=== PATIENT | female | born 1990 | race Caucasian/White ===

== ENCOUNTER 2016-12-01 22:02 | Emergency (ER) | payer MEDICAID ==
--- NOTE | 2016-12-01 22:57 | ER Document Report ---
ED General - General Chief Complaint: Abdominal Pain Stated Complaint: ABDOMINAL AND BACK PAIN,NAUSEA Notes: Patient is a 26-year-old female presents with complaint of pelvic pain. Patient says that she's been having the pain off and on for 2 years. She says the pain always starts to occur approximately week for menstrual.. She says the pain has become worse. So as a sharp stabbing pain. So is the suprapubic region. Her muscle periods have also become more heavy. She is approximately 1 week from her normal time of her menstrual period. She does not think she be . No abnormal vaginal discharge. No other complaints at this time. She does have a family history of endometriosis as well as uterine fibroids. TRAVEL OUTSIDE OF THE [place] IN LAST 30 DAYS: No - Related Data Allergies/Adverse Reactions: No Known Allergies Allergy (Verified 10/24/16 11:39) Past Medical History - Social History Smoking Status: Never Smoker Frequency of alcohol use: None Drug Abuse: None Family History: Reviewed & Not Pertinent Patient has suicidal ideation: No Patient has homicidal ideation: No Pulmonary Medical History: Denies: Hx Tuberculosis Endocrine Medical History: Reports: Hx Diabetes Mellitus Type 1, Hx Hypothyroidism Renal/ Medical History: Denies: Hx Peritoneal Dialysis Past Surgical History: Reports: Hx Oral Surgery - wisdom. Denies: Hx Pacemaker - Immunizations Immunizations up to date: Yes Hx Diphtheria, Pertussis, Tetanus Vaccination: Yes Hx Pneumococcal Vaccination: 03/02/12 Review of Systems - Review of Systems Notes: My Normal Review Basic REVIEW OF SYSTEMS: CONSTITUTIONAL : Denies fever, chills, or sweats. Denies recent illness. RESPIRATORY: Denies cough, cold, or chest congestion. Denies shortness of breath, difficulty breathing, or wheezing. GASTROINTESTINAL: Abdominal pain. No vomiting or diarrhea. GENITOURINARY: Denies difficulty urinating, painful urination, burning, frequency, or blood in urine. FEMALE GENITOURINARY: Denies vaginal bleeding, abnormal or irregular periods. LMP: 3 weeks ago MUSCULOSKELETAL: Denies neck or back pain or joint pain or swelling. SKIN: Denies rash or skin lesions. NEUROLOGICAL: Denies altered mental status or loss of consciousness. Denies headache. Denies weakness or paralysis or loss of use of either side. Denies problems with gait or speech. Denies sensory or motor loss. ALL OTHER SYSTEMS REVIEWED AND NEGATIVE. Physical Exam - Vital signs Vitals: Temp Pulse Resp BP Pulse Ox 98.6 F 120 H 19 138/94 H 98 12/01/16 22:05 12/01/16 22:05 12/01/16 22:05 12/01/16 22:05 12/01/16 22:05 - Notes Notes: General Appearance: Well nourished, alert, cooperative, no acute distress, mild obvious discomfort. Vitals: reviewed, See vital signs table. Head: no swelling or tenderness to the head Eyes: PERRL, EOMI, Conjuctiva clear Lungs: No wheezing, No rales, No rhonci, No accessory muscle use, good air exchange bilaterally. Heart: Normal rate, Regular rythm, No murmur, no rub Abdomen: Normal BS, soft, No rigidity, mild suprapubic abdominal tenderness to palpation, No guarding, no rebound, no abdominal masses, no organomegaly Extremities: strength 5/5 in all extremities, good pulses in all extremities, no swelling or tenderness in the extremities, no edema. Skin: warm, dry, appropriate color, no rash Neuro: speech clear, oriented x 3, normal affect, responds appropriately to questions. Course - Vital Signs Vital signs: Temp Pulse Resp BP Pulse Ox 98.6 F 120 H 19 138/94 H 98 12/01/16 22:05 12/01/16 22:05 12/01/16 22:05 12/01/16 22:05 12/01/16 22:05 - Laboratory Laboratory results interpreted by me: 12/01/16 23:00 Urine Glucose (UA) 50 H - Transfer of Care Notes: 12/02/16 00:26 I feel the patient is safe to be discharged home. Ultrasound shows some free fluid in right adnexa. She's not . There is a chance she could have another ruptured ovarian cyst. I suspect most likely her pain is related to endometriosis. She has strong family history of endometriosis and her pain was worsens near the time of her menstrual period. However her to gynecology. This time she has no fevers, no abnormal vaginal discharge, and she currently has no concerns for sexually transmitted diseases. I therefore do not think pelvic exam is needed at this time as she just had one 1 month ago and the results were normal. Patient encouraged to return to ER immediately if she has fevers, vomiting, or worsening pain. Patient was tachycardic in triage. IDs suspect this is related to her pain. Clinically she looks very well and is not unwell appearing. 12/02/16 00:28 Dictation of this chart was performed using voice recognition software; therefore, there may be some unintended grammatical errors. Discharge - Discharge Clinical Impression: Pelvic pain Condition: Good Disposition: HOME, SELF-CARE Additional Instructions: Oral Narcotic Medication You have been given a prescription for pain control. This medication is a narcotic. It's best taken with food, as nausea can result if taken on an empty stomach. Don't operate machinery or drive within six hours of taking this medication. Do not combine this medicine with alcohol, or with any medication which can cause sedation (such as cold tablets or sleeping pills) unless you get permission from the physician. Narcotics tend to cause constipation. If possible, drink plenty of fluids and eat a diet high in fiber and fruits. Your ultrasound showed small amount of free fluid. There is no other evidence of any concerning findings. I did not see fibroids. Based on the fact that your symptoms worsen near the time of your menstrual period I suspect she probably to have endometriosis. Please: [facility]-up with [facility]. I've included the phone number to the office. It is under the physician name, Dr. Robles. Please return to the ER immediately if you have fevers, worsening pain, vomiting, or feel unwell. Forms: Return to Work Referrals: AMADO SHIPLEY DO [Primary Care Provider] - Follow up as needed MELL ROBLES MD [ACTIVE STAFF] - Follow up in 3-5 days
[2016-12-01 23:20] LABS: APPEARANCE,URINE CLEAR; BILIRUBIN,URINE NEGATIVE (NEGATIVE); GLUCOSE, URINE 50 mg/dL (NEGATIVE); KETONES,URINE NEGATIVE (NEGATIVE); LEUKOCYTE ESTERASE,URINE NEGATIVE (NEGATIVE); NITRITE,URINE NEGATIVE (NEGATIVE); PROTEIN,URINE NEGATIVE (NEGATIVE); URINE SPECIFIC GRAVITY 1.003; UROBILINOGEN,URINE NEGATIVE mg/dL (<2.0)
[2016-12-02] MEDS ORDERED: HYDROCODONE/ACETAMINOPHEN 5-325 MG 6 TAB/DSPK PO PRN (00:22)
[2016-12-02 00:31] VITALS: BP 124/73
== END 2016-12-02 00:32 | disposition home or self-care (01) ==
LOC: ER 22:02
DX: R10.2 Pelvic and perineal pain (principal); E10.9 Type 1 diabetes mellitus without complications; Z87.42 Personal history of other diseases of the female genital tract
CPT/HCPCS: 76830; 81001; 81025; 93976; 99284

== ENCOUNTER → 2016-12-24 | Outpatient (CLI) | payer MEDICAID ==
[2016-12-24 09:51] LABS: APPEARANCE,URINE CLEAR; BILIRUBIN,URINE NEGATIVE (NEGATIVE); GLUCOSE, URINE 150 mg/dL (NEGATIVE); KETONES,URINE NEGATIVE (NEGATIVE); LEUKOCYTE ESTERASE,URINE NEGATIVE (NEGATIVE); NITRITE,URINE NEGATIVE (NEGATIVE); PROTEIN,URINE NEGATIVE (NEGATIVE); URINE SPECIFIC GRAVITY 1.024; UROBILINOGEN,URINE NEGATIVE mg/dL (<2.0)
[2016-12-24 09:53] LABS: ABSOLUTE EOSINOPHILS # (AUTO) 0.2 10^3/uL (0.0-0.6); ABSOLUTE LYMPHOCYTES (AUTO) 1.3 10^3/uL (0.5-4.7); ABSOLUTE MONOCYTES (AUTO) 0.4 10^3/uL (0.1-1.4); BASOPHILS % (AUTO) 0.7 % (0-2); EOSINOPHILS % (AUTO) 4.3 % (0-6); LYMPHOCYTES % (AUTO) 32.8 % (13-45); MEAN CORPUSCULAR HEMOGLOBIN 25.5 pg (27.0-33.4); MEAN CORPUSCULAR HGB CONC 32.3 g/dL (32.0-36.0); MEAN CORPUSCULAR VOLUME 79 fl (80-97); MONOCYTES % (AUTO) 10.8 % (3-13); RED BLOOD COUNT 4.31 10^6/uL (3.72-5.28); SEGMENTED NEUTROPHILS % (AUTO) 51.4 % (42-78); WHITE BLOOD COUNT 3.9 10^3/uL (4.0-10.5)
[2016-12-24 10:25] LABS: ALANINE AMINOTRANSFERASE 17 U/L (9-52); ALBUMIN 3.7 g/dL (3.5-5.0); ALKALINE PHOSPHATASE 74 U/L (38-126); ANION GAP 10 (5-19); ASPARTATE AMINO TRANSFERASE 15 U/L (14-36); BLOOD UREA NITROGEN 12 mg/dL (7-20); CALCIUM 9.4 mg/dL (8.4-10.2); CARBON DIOXIDE 26 mmol/L (22-30); CHLORIDE 102 mmol/L (98-107); Direct HDL 76 mg/dL (>40); GLUCOSE 190 mg/dL (75-110); POTASSIUM 4.6 mmol/L (3.6-5.0); SODIUM 137.6 mmol/L (137-145); TOTAL PROTEIN 7.1 g/dL (6.3-8.2); TRIGLYCERIDES 54 mg/dL (<150)
[2016-12-24 10:49] LABS: DIRECT LDL 79 mg/dL (<100)
== END ==
LOC: OD 08:28
DX: E11.9 Type 2 diabetes mellitus without complications (principal); Z79.4 Long term (current) use of insulin; Z79.899 Other long term (current) drug therapy
CPT/HCPCS: 36415; 80053; 80061; 81001; 83036; 84443; 85025

== ENCOUNTER → 2017-01-07 | Outpatient (CLI) | payer MEDICAID ==
[2017-01-07 11:35] LABS: FERRITIN 2.39 ng/mL (6.2-137.0)
[2017-01-08 15:39] LABS: HGB A 97.3 % (94.0-98.0); HGB A2 1.9 % (0.7-3.1); HGB SOLUBILITY RESULT Negative (Negative)
== END ==
LOC: OD 10:01
DX: D64.9 Anemia, unspecified (principal); K90.0 Celiac disease
CPT/HCPCS: 36415; 82607; 82728; 82746; 83020; 83516; 83540; 83550; 85045

== ENCOUNTER 2017-01-27 12:48 | Emergency (ER) | payer MEDICAID ==
[2017-01-27 12:55] VITALS: BP 140/84
--- NOTE | 2017-01-27 12:55 | ER Document Report ---
ED Medical Screen (RME) - General TRAVEL OUTSIDE OF THE [place] IN LAST 30 DAYS: No <CELESTINA MARIO - Last Filed: 01/27/17 12:53> <LINETTE HURLEY - Last Filed: 01/29/17 05:39> - General Stated Complaint: ABDOMINAL PAIN Notes: 26 yo female c/o LLQ pain x 3 days, constant sharp pain. denies n/v/d, no fever , no urinary symptoms. no vaginal symptoms. pain radiates from abdomen to left thigh. abdomen soft, + LLQ pain with guarding. (CELESTINA MARIO) - Related Data Allergies/Adverse Reactions: No Known Allergies Allergy (Verified 01/27/17 12:53) Past Medical History Pulmonary Medical History: Denies: Hx Tuberculosis Endocrine Medical History: Reports: Hx Diabetes Mellitus Type 1, Hx Hypothyroidism Renal/ Medical History: Denies: Hx Peritoneal Dialysis Past Surgical History: Reports: Hx Oral Surgery - wisdom. Denies: Hx Pacemaker - Immunizations Immunizations up to date: Yes Hx Diphtheria, Pertussis, Tetanus Vaccination: Yes <CELESTINA MARIO - Last Filed: 01/27/17 12:53> Course - Laboratory Result Diagrams: 01/27/17 13:05 01/27/17 13:05 <LINETTE HURLEY - Last Filed: 01/29/17 05:39> - Vital Signs Vital signs: Temp Pulse Resp BP Pulse Ox 99 F 92 16 140/84 H 99 01/27/17 20:40 01/27/17 20:40 01/27/17 20:40 01/27/17 12:54 01/27/17 20:40 - Laboratory Laboratory results interpreted by me: 01/27/17 01/27/17 01/27/17 13:05 13:05 13:05 Hgb 10.7 L Hct 33.5 L MCV 77 L MCH 24.5 L RDW 15.4 H Glucose 131 H Urine Protein 30 H Urine Glucose (UA) 50 H Urine Ketones TRACE H Doctor's Discharge <CELESTINA MARIO - Last Filed: 01/27/17 12:53> <LINETTE HURLEY - Last Filed: 01/29/17 05:39> - Discharge Clinical Impression: Pelvic pain Condition: Stable Disposition: HOME, SELF-CARE Additional Instructions: Pelvic Pain: There are many causes of pain in the pelvic area. The cause could be the tubes, ovaries, uterus, intestines, appendix, pelvic muscles and connective tissue, or the urinary tract. The cause of your pelvic pain is not clear. However, it seems safe to treat you outside the hospital. If the pain sounds like a temporary problem, we sometimes wait to see if it goes away. Other patients may need additional tests, such as pelvic ultrasound or cultures. Conditions may change. Call us or come back for reexamination if any problems occur, such as: (1) Pain that becomes more severe, steady, or becomes concentrated in one specific area. Also, pain that is more severe with movement or coughing. (2) Vomiting that persists or becomes more frequent. (3) Blood in the vomitus, urine, or bowel movements. Blood in the stool may have a tarry or black appearance. (4) Shaking chills or fever greater than 100 degrees. (5) The abdomen becomes more distended or swollen. (6) Bowel movements cease. (7) Heavy vaginal bleeding. TAKE THE MEDICATION PRESCRIBED. FOLLOW UP WITH [facility] IF NOT IMPROVING. RETURN TO THE EMERGENCY ROOM IF ANY NEW OR WORSENING SYMPTOMS. Prescriptions: Doxycycline Hyclate 100 mg PO BID #14 tablet Hydrocodone/Acetaminophen [Hydrocodon-Acetaminophen 5-325] 1 each PO Q4 PRN #12 tablet PRN Reason: Referrals: [facility] [Provider Group] - Follow up as needed
[2017-01-27 13:45] LABS: ABSOLUTE EOSINOPHILS # (AUTO) 0.1 10^3/uL (0.0-0.6); ABSOLUTE LYMPHOCYTES (AUTO) 2.2 10^3/uL (0.5-4.7); ABSOLUTE MONOCYTES (AUTO) 0.5 10^3/uL (0.1-1.4); BASOPHILS % (AUTO) 0.5 % (0-2); EOSINOPHILS % (AUTO) 1.7 % (0-6); HEMATOCRIT 33.5 % (36.0-47.0); HEMOGLOBIN 10.7 g/dL (12.0-15.5); HGB HCT DIFFERENCE -1.4; LYMPHOCYTES % (AUTO) 31.6 % (13-45); MEAN CORPUSCULAR HEMOGLOBIN 24.5 pg (27.0-33.4); MEAN CORPUSCULAR VOLUME 77 fl (80-97); MONOCYTES % (AUTO) 7.5 % (3-13); RED BLOOD COUNT 4.37 10^6/uL (3.72-5.28); RED CELL DISTRIBUTION WIDTH 15.4 % (11.5-14.0); SEGMENTED NEUTROPHILS % (AUTO) 58.7 % (42-78); WHITE BLOOD COUNT 6.8 10^3/uL (4.0-10.5)
[2017-01-27 13:50] LABS: APPEARANCE,URINE SLIGHTLY-CLOUDY; BILIRUBIN,URINE NEGATIVE (NEGATIVE); GLUCOSE, URINE 50 mg/dL (NEGATIVE); KETONES,URINE TRACE mg/dL (NEGATIVE); LEUKOCYTE ESTERASE,URINE NEGATIVE (NEGATIVE); NITRITE,URINE NEGATIVE (NEGATIVE); PROTEIN,URINE 30 mg/dL (NEGATIVE); URINE SPECIFIC GRAVITY 1.041; UROBILINOGEN,URINE NEGATIVE mg/dL (<2.0)
[2017-01-27 14:08] LABS: ALANINE AMINOTRANSFERASE 18 U/L (9-52); ALBUMIN 4.4 g/dL (3.5-5.0); ALKALINE PHOSPHATASE 61 U/L (38-126); ANION GAP 16 (5-19); ASPARTATE AMINO TRANSFERASE 16 U/L (14-36); BILIRUBIN,DIRECT 0.2 mg/dL (0.0-0.4); BILIRUBIN,TOTAL 1.1 mg/dL (0.2-1.3); BLOOD UREA NITROGEN 14 mg/dL (7-20); CALCIUM 9.5 mg/dL (8.4-10.2); CARBON DIOXIDE 23 mmol/L (22-30); CHLORIDE 105 mmol/L (98-107); CREATININE RESULT 0.53 mg/dL (0.52-1.25); GLUCOSE 131 mg/dL (75-110); POTASSIUM 4.3 mmol/L (3.6-5.0); SODIUM 143.6 mmol/L (137-145); TOTAL PROTEIN 7.8 g/dL (6.3-8.2)
--- NOTE | 2017-01-27 17:59 | ER Document Report ---
ED GI/ - General Mode of Arrival: Ambulatory Information source: Patient TRAVEL OUTSIDE OF THE [place] IN LAST 30 DAYS: No - HPI Patient complains to provider of: Pelvic pain - Left Onset: Other - 3 days ago Timing/Duration: Sudden, Persistent Location: Pelvis Sexual history: control pills Associated symptoms: Nausea Exacerbated by: Other - Lifting left leg. <MARIE UMANZOR - Last Filed: 01/27/17 18:08> <SINDY AVILA - Last Filed: 01/27/17 20:09> - General Chief Complaint: Abdominal Pain Stated Complaint: ABDOMINAL PAIN Notes: Patient is a 26-year-old female presenting to the emergency department concerned of left lower abdominal pain that radiates into her left leg onset 3 days ago. Patient states that lifting her leg worsens the pain, but denies any worsening with walking. Patient admits to some nausea, but denies any vomiting. Patient states that she has history of ovarian cysts, and patient also recently started a new control on 01/10/2017. (MARIE UMANZOR) - Related Data Allergies/Adverse Reactions: No Known Allergies Allergy (Verified 01/27/17 12:53) Past Medical History - General Information source: Patient - Social History Smoking Status: Unknown if Ever Smoked Chew tobacco use (# tins/day): No Frequency of alcohol use: None Drug Abuse: None Family History: Reviewed & Not Pertinent Patient has suicidal ideation: No Patient has homicidal ideation: No Pulmonary Medical History: Denies: Hx Tuberculosis Endocrine Medical History: Reports: Hx Diabetes Mellitus Type 1, Hx Hypothyroidism Renal/ Medical History: Reports: Hx Ovarian Cysts. Denies: Hx Peritoneal Dialysis Past Surgical History: Reports: Hx Oral Surgery - wisdom. Denies: Hx Pacemaker - Immunizations Immunizations up to date: Yes Hx Diphtheria, Pertussis, Tetanus Vaccination: Yes Hx Pneumococcal Vaccination: 03/02/12 <MARIE UMANZOR - Last Filed: 01/27/17 18:08> Review of Systems - Review of Systems Constitutional: No symptoms reported EENT: No symptoms reported Cardiovascular: No symptoms reported Respiratory: No symptoms reported Gastrointestinal: See HPI, Abdominal pain - Suprapubic radiates into left thigh , Nausea. denies: Vomiting Genitourinary: No symptoms reported Female Genitourinary: No symptoms reported Musculoskeletal: No symptoms reported Skin: No symptoms reported Hematologic/Lymphatic: No symptoms reported Neurological/Psychological: No symptoms reported -: Yes All other systems reviewed and negative <MARIE UMANZOR - Last Filed: 01/27/17 18:08> Physical Exam - General General appearance: Appears well, Alert - HEENT Head: Normocephalic, Atraumatic Eyes: Normal Pupils: PERRL - Respiratory Respiratory status: No respiratory distress Chest status: Nontender Breath sounds: Normal Chest palpation: Normal - Cardiovascular Rhythm: Regular Heart sounds: Normal auscultation Murmur: No - Abdominal Distension: No distension Bowel sounds: Normal Tenderness: Tender - Left pelvic tenderness to deep palpation. No guarding or rebound. - Back Back: Normal, Nontender - Extremities General upper extremity: Normal inspection, Nontender General lower extremity: Normal inspection, Nontender - Neurological Neuro grossly intact: Yes Cognition: Normal [place] Coma Scale Eye Opening: Spontaneous [place] Coma Scale Verbal: Oriented [place] Coma Scale Motor: Obeys Commands [place] Coma Scale Total: 15 - Psychological Associated symptoms: Normal affect, Normal mood - Skin Skin Temperature: Warm Skin Moisture: Dry Skin Color: Normal <MARIE UMANZOR - Last Filed: 01/27/17 18:08> Course - Laboratory Result Diagrams: 01/27/17 13:05 01/27/17 13:05 <MARIE UMANZOR - Last Filed: 01/27/17 18:08> - Laboratory Result Diagrams: 01/27/17 13:05 01/27/17 13:05 - Diagnostic Test Radiology reviewed: Reports reviewed - Transvaginal ultrasound is unremarkable <SINDY AVILA - Last Filed: 01/27/17 20:09> - Vital Signs Vital signs: Temp Pulse Resp BP Pulse Ox 97.8 F 115 H 16 140/84 H 99 01/27/17 12:54 01/27/17 12:54 01/27/17 12:54 01/27/17 12:54 01/27/17 12:54 - Laboratory Laboratory results interpreted by me: 01/27/17 01/27/17 01/27/17 13:05 13:05 13:05 Hgb 10.7 L Hct 33.5 L MCV 77 L MCH 24.5 L RDW 15.4 H Glucose 131 H Urine Protein 30 H Urine Glucose (UA) 50 H Urine Ketones TRACE H Discharge <MARIE UMANZOR - Last Filed: 01/27/17 18:08> <SINDY AVILA - Last Filed: 01/27/17 20:09> - Discharge Clinical Impression: Pelvic pain Condition: Stable Disposition: HOME, SELF-CARE Additional Instructions: Pelvic Pain: There are many causes of pain in the pelvic area. The cause could be the tubes, ovaries, uterus, intestines, appendix, pelvic muscles and connective tissue, or the urinary tract. The cause of your pelvic pain is not clear. However, it seems safe to treat you outside the hospital. If the pain sounds like a temporary problem, we sometimes wait to see if it goes away. Other patients may need additional tests, such as pelvic ultrasound or cultures. Conditions may change. Call us or come back for reexamination if any problems occur, such as: (1) Pain that becomes more severe, steady, or becomes concentrated in one specific area. Also, pain that is more severe with movement or coughing. (2) Vomiting that persists or becomes more frequent. (3) Blood in the vomitus, urine, or bowel movements. Blood in the stool may have a tarry or black appearance. (4) Shaking chills or fever greater than 100 degrees. (5) The abdomen becomes more distended or swollen. (6) Bowel movements cease. (7) Heavy vaginal bleeding. TAKE THE MEDICATION PRESCRIBED. FOLLOW UP WITH [facility] IF NOT IMPROVING. RETURN TO THE EMERGENCY ROOM IF ANY NEW OR WORSENING SYMPTOMS. Prescriptions: Doxycycline Hyclate 100 mg PO BID #14 tablet Hydrocodone/Acetaminophen [Hydrocodon-Acetaminophen 5-325] 1 each PO Q4 PRN #12 tablet PRN Reason: Referrals: [facility] [Provider Group] - Follow up as needed Scribe Attestation: 01/27/17 20:09 I personally performed the services described in the documentation, reviewed and edited the documentation which was dictated to the scribe in my presence, and it accurately records my words and actions. (SINDY AVILA) Scribe Documentation - Scribe Written by Ely:: Marie Umanzor 01/27/2017 [id number] acting as scribe for :: Thanh <MARIE UMANZOR - Last Filed: 01/27/17 18:08>
[2017-01-27] MEDS ORDERED: DOXYCYCLINE HYCLATE 100 MG TABLET PO ONE (20:04)
[2017-01-27] MEDS ORDERED: HYDROCODONE/ACETAMINOPHEN 5-325 MG 6 TAB/DSPK PO PRN (20:04)
[2017-01-27 22:13] LABS: CHLAM PCR NOT DETECTED (NOT DETECT)
== END 2017-01-27 20:30 | disposition home or self-care (01) ==
LOC: ER 12:48
DX: R10.2 Pelvic and perineal pain (principal); R11.0 Nausea; E10.9 Type 1 diabetes mellitus without complications; Z87.42 Personal history of other diseases of the female genital tract; Z79.3 Long term (current) use of hormonal contraceptives
CPT/HCPCS: 99284; 36415; 84703; 85025; 80053; 81001; 87491; 87591; 76830; J3490

== ENCOUNTER 2017-05-28 21:31 | Emergency (ER) | payer MEDICAID ==
[2017-05-28] MEDS ORDERED: TETRACAINE HCL 0.5% OPH SOLN 2 ML OU ONE (23:05)
--- NOTE | 2017-05-28 23:14 | ER Document Report ---
ED General - General Chief Complaint: Drainage from Eye Stated Complaint: EYE SWELLING/DISCHARGE Time Seen by Provider: 05/28/17 22:59 Notes: 5 days of bilateral eye burning discharge and crusting constant worsening first left than right. Viral symptoms as well. No fever. Blurry vision only with discharge and then it clears when she wipes. TRAVEL OUTSIDE OF THE [place] IN LAST 30 DAYS: No - Related Data Allergies/Adverse Reactions: No Known Allergies Allergy (Verified 01/27/17 12:53) Past Medical History - General Information source: Patient - Social History Smoking Status: Unknown if Ever Smoked Family History: Reviewed & Not Pertinent Patient has suicidal ideation: No Patient has homicidal ideation: No Pulmonary Medical History: Denies: Hx Tuberculosis Endocrine Medical History: Reports: Hx Diabetes Mellitus Type 1, Hx Hypothyroidism Renal/ Medical History: Reports: Hx Ovarian Cysts. Denies: Hx Peritoneal Dialysis Past Surgical History: Reports: Hx Oral Surgery - wisdom. Denies: Hx Pacemaker - Immunizations Immunizations up to date: Yes Hx Diphtheria, Pertussis, Tetanus Vaccination: Yes Hx Pneumococcal Vaccination: 03/02/12 Review of Systems - Review of Systems Notes: REVIEW OF SYSTEMS GEN: Denies fever, chills, weight loss ENT: Denies sore throat, nasal discharge, ear pain EYES: Denies blurry vision, CV: Denies chest pain, palpitations, edema RESP: Denies cough, shortness of breath, wheezing GI: Denies abdominal pain, nausea, vomiting, diarrhea MSK: Denies joint pain/swelling, edema, SKIN: Denies rash, skin lesions LYMPH: Denies swollen glands/lymph nodes NEURO: Denies headache, focal weakness or numbness, dizziness PSYCH: Denies depression, suicidal or homicidal ideation PHYSICAL EXAMINATION General: No acute distress, well-nourished Head: Atraumatic, normocephalic ENT: Mouth normal, oropharynx moist, no exudates or tonsillar enlargement Eyes: Conjunctiva bilaterally injected, painless extraocular movements which are full, pupils normal. Neck: No JVD, supple, no guarding CVS: Normal rate, regular rhythm, no murmurs Resp: No resp distress, equal and normal breath sounds bilaterally GI: Nondistended, soft, no tenderness to palpation, no rebound or guarding Ext: No deformities, no edema, normal range of motion in upper and lower ext Back: No CVA or midline TTP Skin: No rash, warm Lymphatic: No lymphadeopathy noted Neuro: Awake, alert. Face symmetric. GCS 15. Physical Exam - Vital signs Vitals: Temp Pulse Resp BP Pulse Ox 97.8 F 108 H 18 138/83 H 99 05/28/17 21:35 05/28/17 21:35 05/28/17 21:35 05/28/17 21:35 05/28/17 21:35 Course - Re-evaluation Re-evalutation: 05/28/17 23:14 Conjunctivitis with minimal discharge likely viral. Erythromycin to prophylax. Conservative measures. I have discussed with the patient there likely diagnosis, aftercare plan, follow -up plans and my usual and customary return precautions. They verbalized understanding of this. - Vital Signs Vital signs: Temp Pulse Resp BP Pulse Ox 97.8 F 108 H 18 138/83 H 99 05/28/17 21:35 05/28/17 21:35 05/28/17 21:35 05/28/17 21:35 05/28/17 21:35 Discharge - Discharge Clinical Impression: Viral conjunctivitis of both eyes Condition: Good Disposition: HOME, SELF-CARE Instructions: Conjunctivitis ([facility]) Prescriptions: Erythromycin Base [Erythromycin] 1 gm OP TID #1 oint...g.
[2017-05-28 23:29] VITALS: BP 111/89
== END 2017-05-28 23:23 | disposition home or self-care (01) ==
LOC: ER 21:31
DX: B30.9 Viral conjunctivitis, unspecified (principal)
CPT/HCPCS: 99282

== ENCOUNTER 2017-06-01 16:51 | Emergency (ER) | payer MEDICAID ==
[2017-06-01 17:00] VITALS: BP 129/84
[2017-06-01] MEDS ORDERED: IBUPROFEN 800 MG TABLET PO ONE (17:13)
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
== END 2017-06-01 19:16 | disposition home or self-care (01) ==
LOC: ER 16:51
DX: S63.501A Unspecified sprain of right wrist, initial encounter (principal); S63.91XA Sprain of unspecified part of right wrist and hand, initial encounter; W51.XXXA Accidental striking against or bumped into by another person, initial encounter; Y93.83 Activity, rough housing and horseplay; E10.9 Type 1 diabetes mellitus without complications
CPT/HCPCS: 99283; 73130; L3908 ×2

== ENCOUNTER 2017-06-14 13:04 | Emergency (ER) | payer MEDICAID ==
--- NOTE | 2017-06-14 14:24 | ER Document Report ---
ED Flu Like - General Chief Complaint: Flu Symptoms Stated Complaint: FLU LIKE SYMPTOMS Time Seen by Provider: 06/14/17 13:54 Mode of Arrival: Ambulatory Information source: Patient Notes: 27-year-old female presents to ED for complaint of sore throat ear pain headache for 3 weeks. She denies any fever states that she has had some nausea earlier today. States that the sore throat and cold has gotten worse throughout the last 3 weeks and now the sore throat is so bad that it makes her ears patient. She still denies fevers. TRAVEL OUTSIDE OF THE [place] IN LAST 30 DAYS: No - HPI Onset: Other - Week Timing/Duration: Worse Quality of pain: Sharp Severity: Moderate Pain Level: 3 Associated symptoms: Earache, Nausea, Rhinnorhea, Sinus pain/drainage, Sore throat Similar symptoms previously: Yes Recently seen / treated by doctor: No - Related Data Allergies/Adverse Reactions: No Known Allergies Allergy (Verified 06/14/17 13:28) Past Medical History - General Information source: Patient - Social History Smoking Status: Never Smoker Cigarette use (# per day): No Chew tobacco use (# tins/day): No Smoking Education Provided: No Frequency of alcohol use: None Drug Abuse: None Occupation: none Lives with: Family Family History: Arthritis, CVA, DM, Thyroid Disfunction. denies: CAD, COPD, Hyperlipidemia, Hypertension, Malignancy Patient has suicidal ideation: No Patient has homicidal ideation: No - Past Medical History Cardiac Medical History: Reports: None Pulmonary Medical History: Reports: None EENT Medical History: Reports: None Neurological Medical History: Reports: None Endocrine Medical History: Reports: Hx Diabetes Mellitus Type 1, Hx Hypothyroidism Renal/ Medical History: Reports: Hx Ovarian Cysts, Other - enometriosis Malignancy Medical History: Reports: None GI Medical History: Reports: None Musculoskeltal Medical History: Reports None Skin Medical History: Reports None Psychiatric Medical History: Reports: None Traumatic Medical History: Reports: None Infectious Medical History: Reports: None Past Surgical History: Reports: Hx Oral Surgery - wisdom - Immunizations Immunizations up to date: Yes Hx Diphtheria, Pertussis, Tetanus Vaccination: Yes - 2008 Hx Pneumococcal Vaccination: 03/02/12 Review of Systems - Review of Systems Constitutional: Recent illness EENT: Ear pain, Nose discharge, Sinus discharge, Throat pain Cardiovascular: No symptoms reported Respiratory: Cough Gastrointestinal: No symptoms reported Genitourinary: No symptoms reported Female Genitourinary: No symptoms reported Musculoskeletal: No symptoms reported Skin: No symptoms reported Hematologic/Lymphatic: No symptoms reported Neurological/Psychological: No symptoms reported -: Yes All other systems reviewed and negative Physical Exam - Vital signs Vitals: Temp Pulse Resp BP Pulse Ox 99.3 F 98 15 140/89 H 98 06/14/17 13:26 06/14/17 13:26 06/14/17 13:26 06/14/17 13:26 06/14/17 13:26 Interpretation: Normal - General General appearance: Appears well, Alert - HEENT Head: Normocephalic, Atraumatic Eyes: Normal Pupils: PERRL Ears: Normal External canal: Normal Tympanic membrane: Normal Sinus: Normal Nasal: Purulent discharge, Swelling Mouth/Lips: Normal Mucous membranes: Normal Pharynx: Post nasal drainage Neck: Normal - Respiratory Respiratory status: No respiratory distress Chest status: Nontender Breath sounds: Normal Chest palpation: Normal - Cardiovascular Rhythm: Regular Heart sounds: Normal auscultation Murmur: No - Abdominal Inspection: Normal Distension: No distension Bowel sounds: Normal Tenderness: Nontender Organomegaly: No organomegaly - Back Back: Normal, Nontender - Extremities General upper extremity: Normal inspection, Nontender, Normal color, Normal ROM , Normal temperature General lower extremity: Normal inspection, Nontender, Normal color, Normal ROM , Normal temperature, Normal weight bearing. No: Kole's sign - Neurological Neuro grossly intact: Yes Cognition: Normal Orientation: AAOx4 [place] Coma Scale Eye Opening: Spontaneous [place] Coma Scale Verbal: Oriented [place] Coma Scale Motor: Obeys Commands [place] Coma Scale Total: 15 Speech: Normal Motor strength normal: LUE, RUE, LLE, RLE Sensory: Normal - Psychological Associated symptoms: Normal affect, Normal mood - Skin Skin Temperature: Warm Skin Moisture: Dry Skin Color: Normal Course - Re-evaluation Re-evalutation: 06/14/17 22:06 Assessment consistent with upper respiratory infection. Strep test was negative. Patient discharged home with instructions for care of upper respiratory infection. - Vital Signs Vital signs: Temp Pulse Resp BP Pulse Ox 99.3 F 95 17 121/81 98 06/14/17 13:26 06/14/17 15:03 06/14/17 15:03 06/14/17 15:03 06/14/17 15:03 Discharge - Discharge Clinical Impression: URI (upper respiratory infection) Qualifiers: URI type: unspecified URI Qualified Code(s): J06.9 - Acute upper respiratory infection, unspecified Condition: Stable Disposition: HOME, SELF-CARE Additional Instructions: UPPER RESPIRATORY ILLNESS: You have a viral infection of the respiratory passages -- a "cold." This common infection causes nasal congestion, drainage, and often sore throat and cough. It is highly contagious. The disease usually lasts about 10 to 14 days. There is no "cure" for the viral infection -- it must run its course. If there is a complication, such as bacterial infection in the nose, sinuses, middle ear, or bronchial tubes, antibiotics may be required. The antibiotics won't affect the virus. Drink plenty of fluids. A humidifier may help. An expectorant medication or decongestant may make you more comfortable. Use acetaminophen or ibuprofen for fever or aches. See the doctor if fever persists over two days, if there is any significant worsening of your symptoms, or if you simply fail to improve as expected. SORE THROAT: Sore throats may be caused by viruses, bacteria, or fungi. Most are due to a virus, and must get better on their own. Bacterial sore throats, particularly those due to "strep," need treatment with antibiotics. If an antibiotic is prescribed, be sure to take the medication for a full 10 days. Failure to take the antibiotic can result in complications such as rheumatic fever. Sometimes, an injection of antibiotics is given instead of pills or liquid. This single "shot" is equal in effectiveness to the oral medication. To relieve symptoms, take acetaminophen for pain. Sip clear liquids frequently, or eat popsicles or ice chips. Anesthetic sprays or lozenges may help. Make sure the air in the room is not too dry. Avoid using decongestants or antihistamines. Call the doctor if there is no improvement in two days, or if you have difficulty breathing, increasing throat pain, high fever, rash, or frequent vomiting. USE OF ACETAMINOPHEN (Tylenol): Acetaminophen may be taken for pain relief or fever control. It's much safer than aspirin, offering a wider range of "safe" dosages. It is safe during . Some brand names are Tylenol, Panadol, Datril, Anacin 3, Tempra, and Liquiprin. Acetaminophen can be repeated every four hours. The following are maximum recommended dosages: >89 pounds or adults 650 mg to 900 mg Acetaminophen can be repeated every four hours. Maximum dose not to exceed 4000 mg a day. Salt and soda solution 1 quart of water 1 tablespoon of salt 1 teaspoon of baking soda Mixed 3 ingredients together and boil for 1 minute Placed in a covered quart jar Use 1/2 ounce of cold solution to gargle 3 times a day FOLLOW-UP CARE: If you have been referred to a physician for follow-up care, call the physician s office for an appointment as you were instructed or within the next two days. If you experience worsening or a significant change in your symptoms, notify the physician immediately or return to the Emergency Department at any time for re-evaluation. Forms: Elevated Blood Pressure Referrals: BENY ROSARIO MD [Primary Care Provider] - Follow up as needed
[2017-06-14 15:05] VITALS: BP 121/81
== END 2017-06-14 15:06 | disposition home or self-care (01) ==
LOC: ER 13:04
DX: J06.9 Acute upper respiratory infection, unspecified (principal); J02.9 Acute pharyngitis, unspecified; H92.09 Otalgia, unspecified ear; R51 Headache; R11.0 Nausea; J34.89 Other specified disorders of nose and nasal sinuses
CPT/HCPCS: 87070; 87880; 99283

== ENCOUNTER → 2017-06-15 | Outpatient (CLI) | payer MEDICAID ==
--- NOTE | 2017-06-15 13:46 | RADIOLOGY REPORT (SQ) ---
EXAM DESCRIPTION: CHEST PA/LATERAL COMPLETED DATE/TIME: 06/15/2017 12:36 pm REASON FOR STUDY: COUGH COMPARISON: CT angio chest 10/04/2014 AP chest 10/04/2014 EXAM PARAMETERS: NUMBER OF VIEWS: two views TECHNIQUE: Digital Frontal and Lateral radiographic views of the chest acquired. RADIATION DOSE: NA LIMITATIONS: none FINDINGS: LUNGS AND PLEURA: No opacities, masses or pneumothorax. No pleural effusion. MEDIASTINUM AND HILAR STRUCTURES: No masses or contour abnormalities. HEART AND VASCULAR STRUCTURES: Heart normal size. No evidence for failure. BONES: No acute findings. HARDWARE: None in the chest. OTHER: No other significant finding. IMPRESSION: NO SIGNIFICANT RADIOGRAPHIC FINDING IN THE CHEST. TECHNICAL DOCUMENTATION: JOB ID: [id number] [employer]- All Rights Reserved
[2017-06-16 16:19] LABS: LYME DISEASE IGG AND IGM AB <0.91 ISR (0.00-0.90)
== END ==
LOC: OD 11:22
PROVIDERS: ATTEND Family Medicine Geriatric Medicine
DX: R05 Cough (principal)
CPT/HCPCS: 36415; 71020; 86617; 86618

== ENCOUNTER → 2017-08-11 | Outpatient (CLI) | payer MEDICAID ==
[2017-08-11 13:52] LABS: ABSOLUTE EOSINOPHILS # (AUTO) 0.1 10^3/uL (0.0-0.6); ABSOLUTE LYMPHOCYTES (AUTO) 2.1 10^3/uL (0.5-4.7); ABSOLUTE MONOCYTES (AUTO) 0.4 10^3/uL (0.1-1.4); ABSOLUTE NEUT (AUTO) 2.9 10^3/uL (1.7-8.2); BASOPHILS % (AUTO) 0.5 % (0-2); EOSINOPHILS % (AUTO) 1.6 % (0-6); HEMATOCRIT 36.7 % (36.0-47.0); HEMOGLOBIN 11.8 g/dL (12.0-15.5); HGB HCT DIFFERENCE -1.3; LYMPHOCYTES % (AUTO) 38.7 % (13-45); MEAN CORPUSCULAR HEMOGLOBIN 25.2 pg (27.0-33.4); MEAN CORPUSCULAR VOLUME 79 fl (80-97); MONOCYTES % (AUTO) 6.5 % (3-13); RED BLOOD COUNT 4.66 10^6/uL (3.72-5.28); SEGMENTED NEUTROPHILS % (AUTO) 52.7 % (42-78); WHITE BLOOD COUNT 5.5 10^3/uL (4.0-10.5)
[2017-08-11 14:22] LABS: ALANINE AMINOTRANSFERASE 21 U/L (9-52); ALBUMIN 4.5 g/dL (3.5-5.0); ALKALINE PHOSPHATASE 65 U/L (38-126); ANION GAP 15 (5-19); ASPARTATE AMINO TRANSFERASE 16 U/L (14-36); BILIRUBIN,DIRECT 0.5 mg/dL (0.0-0.4); BILIRUBIN,TOTAL 1.6 mg/dL (0.2-1.3); BLOOD UREA NITROGEN 8 mg/dL (7-20); CALCIUM 9.8 mg/dL (8.4-10.2); CARBON DIOXIDE 24 mmol/L (22-30); CHLORIDE 104 mmol/L (98-107); CHOLESTEROL 197.54 mg/dL (0-200); CREATININE RESULT 0.57 mg/dL (0.52-1.25); Direct HDL 67 mg/dL (>40); GLUCOSE 172 mg/dL (75-110); POTASSIUM 4.5 mmol/L (3.6-5.0); SODIUM 142.8 mmol/L (137-145); TOTAL PROTEIN 7.9 g/dL (6.3-8.2); TRIGLYCERIDES 132 mg/dL (<150)
[2017-08-11 14:33] LABS: DIRECT LDL 117 mg/dL (<100)
[2017-08-13 13:01] LABS: MICROALBUMIN URINE <3.0 ug/mL (Not Estab.)
[2017-08-13 15:01] LABS: LYME DISEASE IGG AND IGM AB <0.91 ISR (0.00-0.90)
== END ==
LOC: OD 13:03
PROVIDERS: ATTEND Family Medicine Geriatric Medicine
DX: E78.5 Hyperlipidemia, unspecified (principal); R20.2 Paresthesia of skin; R50.9 Fever, unspecified; Z79.899 Other long term (current) drug therapy; E10.9 Type 1 diabetes mellitus without complications
CPT/HCPCS: 36415; 80053; 80061; 82043; 82570; 82607; 83036; 84443; 85025; 86617; 86618

== ENCOUNTER → 2017-12-16 | Outpatient (CLI) | payer MEDICAID ==
[2017-12-16 15:58] LABS: ANION GAP 14 (5-19); BLOOD UREA NITROGEN 6 mg/dL (7-20); CALCIUM 9.9 mg/dL (8.4-10.2); CARBON DIOXIDE 27 mmol/L (22-30); CHLORIDE 101 mmol/L (98-107); GLUCOSE 114 mg/dL (75-110); SODIUM 141.9 mmol/L (137-145)
[2017-12-18 16:38] LABS: CREATININE URINE 109.1 mg/dL (Not Estab.); MICROALBUMIN URINE 3.6 ug/mL (Not Estab.)
== END ==
LOC: OD 14:34
PROVIDERS: ATTEND Family Medicine Geriatric Medicine
DX: E10.9 Type 1 diabetes mellitus without complications (principal); Z79.899 Other long term (current) drug therapy
CPT/HCPCS: 36415; 80048; 82043; 82570; 83036

== ENCOUNTER 2018-01-02 17:24 | Emergency (ER) | payer MEDICAID ==
[2018-01-02] MEDS ORDERED: ACETAMINOPHEN 325 MG TABLET PO ONE (17:36)
[2018-01-02] MEDS ORDERED: HYDROCODONE/ACETAMINOPHEN 5-325 MG TABLET PO ONE (17:44)
--- NOTE | 2018-01-02 17:45 | ER Document Report ---
HPI - HPI Patient complains to provider of: ankle injury Onset: This afternoon Onset/Duration: Sudden Quality of pain: Achy Pain Level: 4 Context: Patient states she was running and felt her ankle snap. Patient states she twisted her ankle. Patient complains of pain that radiates from the ankle into her foot. Exacerbated by: Standing, Movement, Walking Relieved by: Denies Similar symptoms previously: No Recently seen / treated by doctor: No - ROS ROS below otherwise negative: Yes Systems Reviewed and Negative: Yes All other systems reviewed and negative - CONSTITUTIONAL Constitutional: DENIES: Fever - NEURO Neurology: DENIES: Weakness - REPRODUCTIVE Reproductive: DENIES: : - MUSCULOSKELETAL Musculoskeletal: REPORTS: Extremity pain, Swelling - DERM Skin Color: Normal Skin Problems: None Past Medical History - General Information source: Patient - Social History Smoking Status: Never Smoker Frequency of alcohol use: None Drug Abuse: None Occupation: none Lives with: Family Family History: Arthritis, CVA, DM, Thyroid Disfunction. denies: CAD, COPD, Hyperlipidemia, Hypertension, Malignancy Pulmonary Medical History: Denies: Hx Tuberculosis Endocrine Medical History: Reports: Hx Diabetes Mellitus Type 1, Hx Hypothyroidism Renal/ Medical History: Reports: Hx Ovarian Cysts. Denies: Hx Peritoneal Dialysis Past Surgical History: Reports: Hx Oral Surgery - wisdom - Immunizations Immunizations up to date: Yes Hx Diphtheria, Pertussis, Tetanus Vaccination: Yes - 2008 Hx Pneumococcal Vaccination: 03/02/12 Vertical Provider Document - CONSTITUTIONAL Agree With Documented VS: Yes Exam Limitations: No Limitations General Appearance: WD/WN, No Apparent Distress - INFECTION CONTROL TRAVEL OUTSIDE OF THE [place] IN LAST 30 DAYS: No - HEENT HEENT: Atraumatic, Normocephalic - NECK Neck: Normal Inspection - RESPIRATORY Respiratory: No Respiratory Distress O2 Sat by Pulse Oximetry: 99 - CARDIOVASCULAR Pulses: Normal: Dorsalis pedis - MUSCULOSKELETAL/EXTREMETIES Musculoskeletal/Extremeties: MAEW, Tender - Right ankle tenderness over lateral malleolar area with 2+ edema, tenderness extends to the right midfoot area into the right fifth toe. - NEURO Level of Consciousness: Awake, Alert, Appropriate Motor/Sensory: No Motor Deficit - DERM Integumentary: Warm, Dry, No Rash Course - Vital Signs Vital signs: Temp Pulse Resp BP Pulse Ox 98.2 F 113 H 130/78 H 99 01/02/18 17:34 01/02/18 17:34 03/04/18 17:34 01/02/18 17:34 - Diagnostic Test Radiology reviewed: Image reviewed, Reports reviewed Procedures - Immobilization Right Ankle Pre-Proc Neuro Vasc Exam: Normal Immobilizer type: Ankle stirrup Performed by: PCT Post-Proc Neuro Vasc Exam: Normal Alignment checked and good: Yes Discharge - Discharge Clinical Impression: Right ankle sprain Qualifiers: Encounter type: initial encounter Involved ligament of ankle: unspecified ligament Qualified Code(s): S93.401A - Sprain of unspecified ligament of right ankle, initial encounter Condition: Stable Disposition: HOME, SELF-CARE Instructions: Ankle Stirrup Splint ([facility]), Use of Crutches ([facility]), Ice & Elevation ([facility]), Oral Narcotic Medication ([facility]), Sprained Ankle ([facility]) Additional Instructions: Return immediately for any new or worsening symptoms Followup with your primary care provider, call tomorrow to make a followup appointment Follow-up with orthopedic doctor for any continued pain or problems Weightbearing as tolerated. Prescriptions: Hydrocodone/Acetaminophen [[place] 5-325 Tablet] 1 each PO Q4 PRN #10 tablet PRN Reason: Referrals: BENY ROSARIO MD [Primary Care Provider] - Follow up as needed [facility] [Provider Group] - Follow up as needed
--- NOTE | 2018-01-02 18:45 | RADIOLOGY REPORT (SQ) ---
EXAM DESCRIPTION: ANKLE RIGHT COMPLETE COMPLETED DATE/TIME: 01/02/2018 6:35 pm REASON FOR STUDY: pain, swelling, rolled her ankle COMPARISON: None. NUMBER OF VIEWS: Three views. TECHNIQUE: AP, lateral, and oblique radiographic images acquired of the right ankle. LIMITATIONS: None. FINDINGS: MINERALIZATION: Normal. BONES: No acute fracture or dislocation. No worrisome bone lesions. JOINTS: No effusions. SOFT TISSUES: Swelling over lateral malleolus. OTHER: No other significant finding. IMPRESSION: No fracture. TECHNICAL DOCUMENTATION: JOB ID: [id number] [employer]- All Rights Reserved Reading location - IP/workstation name: [email or web address]
--- NOTE | 2018-01-02 18:46 | RADIOLOGY REPORT (SQ) ---
EXAM DESCRIPTION: FOOT RIGHT COMPLETE COMPLETED DATE/TIME: 01/02/2018 6:35 pm REASON FOR STUDY: rolled ankle, foot pain COMPARISON: None. NUMBER OF VIEWS: Three views. TECHNIQUE: AP, lateral and oblique radiographic images acquired of the right foot. LIMITATIONS: None. FINDINGS: MINERALIZATION: Normal. BONES: No acute fracture or dislocation. No worrisome bone lesions. JOINTS: No effusions. SOFT TISSUES: No soft tissue swelling. No foreign body. OTHER: No other significant finding. IMPRESSION: NEGATIVE STUDY OF THE RIGHT FOOT. NO RADIOGRAPHIC EVIDENCE OF ACUTE INJURY. TECHNICAL DOCUMENTATION: JOB ID: [id number] [employer]- All Rights Reserved Reading location - IP/workstation name: [email or web address]
[2018-01-02 19:54] VITALS: BP 121/62
== END 2018-01-02 20:23 | disposition home or self-care (01) ==
LOC: ER 17:24
PROC: 2W3QX1Z Immobilization of Right Lower Leg using Splint (ICD-10-PCS; principal; 2018-01-02)
DX: S93.401A Sprain of unspecified ligament of right ankle, initial encounter (principal); X58.XXXA Exposure to other specified factors, initial encounter; Y93.02 Activity, running; E10.9 Type 1 diabetes mellitus without complications; E03.9 Hypothyroidism, unspecified
CPT/HCPCS: 99283; 73610; 73630; L1902

== ENCOUNTER 2018-04-29 09:57 | Emergency (ER) | payer MEDICAID ==
[2018-04-29 10:07] VITALS: BP 139/72
[2018-04-29] MEDS ORDERED: ACETAMINOPHEN 325 MG TABLET PO ONE (10:22)
--- NOTE | 2018-04-29 10:24 | ER Document Report ---
ED Medical Screen (RME) - General Chief Complaint: Abscess Stated Complaint: SKIN ISSUE Time Seen by Provider: 04/29/18 10:20 Notes: RAPID MEDICAL EVALUATION DISCLOSURE I have seen this patient as part of a Rapid Medical Evaluation and, if applicable, placed any initially appropriate orders. The patient will be seen and fully evaluated, including a full history and physical exam, by a provider ( in Main ED or Fast Track) when a room becomes available. 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 She sat in a hot bath for a few minutes and it started to drain purulent material. She has not had any fevers chills nausea vomiting. Two years ago, she had something similar and was prescribed doxycycline which completely resolved the symptoms. TRAVEL OUTSIDE OF THE [place] IN LAST 30 DAYS: No - Related Data Allergies/Adverse Reactions: No Known Allergies Allergy (Verified 04/29/18 09:59) Past Medical History Pulmonary Medical History: Denies: Hx Tuberculosis Endocrine Medical History: Reports: Hx Diabetes Mellitus Type 1, Hx Hypothyroidism Renal/ Medical History: Reports: Hx Ovarian Cysts. Denies: Hx Peritoneal Dialysis Past Surgical History: Reports: Hx Oral Surgery - wisdom - Immunizations Immunizations up to date: Yes Hx Diphtheria, Pertussis, Tetanus Vaccination: Yes - 2008 Physical Exam - Vital signs Vitals: Temp Pulse Resp BP Pulse Ox 99.1 F 87 16 139/72 H 99 04/29/18 10:05 04/29/18 10:05 04/29/18 10:05 04/29/18 10:05 04/29/18 10:05 Course - Vital Signs Vital signs: Temp Pulse Resp BP Pulse Ox 99.1 F 87 16 139/72 H 99 04/29/18 10:05 04/29/18 10:05 04/29/18 10:05 04/29/18 10:05 04/29/18 10:05 Doctor's Discharge - Discharge Referrals: BENY ROSARIO MD [Primary Care Provider] - Follow up as needed
--- NOTE | 2018-04-29 10:33 | ER Document Report ---
HPI - HPI Patient complains to provider of: Right buttocks abscess Onset: Other - Several days Onset/Duration: Better - Already started to drain while she was waiting to be seen Pain Level: 2 Context: 27-year-old female complaining of right buttocks abscess that is already started to drain since she came here to be seen. No fever or chills. No history of MRSA. Associated Symptoms: None Exacerbated by: Denies Relieved by: Denies Similar symptoms previously: No Recently seen / treated by doctor: No - ROS ROS below otherwise negative: Yes Systems Reviewed and Negative: Yes All other systems reviewed and negative - REPRODUCTIVE Reproductive: DENIES: : Past Medical History - General Information source: Patient - Social History Smoking Status: Never Smoker Chew tobacco use (# tins/day): No Frequency of alcohol use: None Drug Abuse: None Lives with: Family Family History: Arthritis, CVA, DM, Thyroid Disfunction Patient has suicidal ideation: No Patient has homicidal ideation: No Endocrine Medical History: Reports: Hx Diabetes Mellitus Type 1, Hx Hypothyroidism Renal/ Medical History: Reports: Hx Ovarian Cysts Past Surgical History: Reports: Hx Oral Surgery - wisdom - Immunizations Immunizations up to date: Yes Hx Diphtheria, Pertussis, Tetanus Vaccination: Yes - 2008 Hx Pneumococcal Vaccination: 03/02/12 Vertical Provider Document - CONSTITUTIONAL Agree With Documented VS: Yes Exam Limitations: No Limitations - INFECTION CONTROL TRAVEL OUTSIDE OF THE [place] IN LAST 30 DAYS: No - HEENT HEENT: Normocephalic - NECK Neck: Supple - MUSCULOSKELETAL/EXTREMETIES Musculoskeletal/Extremeties: MAEW - NEURO Level of Consciousness: Awake - DERM Integumentary: Abscess - Right buttocks minimally red flat lesion that already drained there is no fluid collection that needs to be incised Course - Vital Signs Vital signs: Temp Pulse Resp BP Pulse Ox 99.1 F 87 16 139/72 H 99 04/29/18 10:05 04/29/18 10:05 04/29/18 10:05 04/29/18 10:05 04/29/18 10:05 Discharge - Discharge Clinical Impression: rt buttocks spon drained abscess Condition: Good Disposition: HOME, SELF-CARE Instructions: Abscess ([facility]), Bactroban Ointment ([facility]) Additional Instructions: Bactroban 3 times a day small amount to pimples and small abscesses Return to the emergency room any concerns Prescriptions: Mupirocin [Bactroban 2% Ointment 22 gm] 1 applic TP TID #22 gm Referrals: BENY ROSARIO MD [Primary Care Provider] - Follow up as needed
== END 2018-04-29 11:14 | disposition home or self-care (01) ==
LOC: ER 09:57
DX: L02.31 Cutaneous abscess of buttock (principal); E10.9 Type 1 diabetes mellitus without complications; E03.9 Hypothyroidism, unspecified
CPT/HCPCS: 99282; J3490

== ENCOUNTER → 2018-05-17 | Outpatient (CLI) | payer MEDICAID | LOC: OD 12:39 | PROVIDERS: ATTEND Family Medicine Geriatric Medicine | DX: N91.2 Amenorrhea, unspecified (principal) | CPT/HCPCS: 36415; 84703 ==

== ENCOUNTER 2018-11-16 10:12 | Emergency (ER) | payer MEDICAID, OTHER ==
[2018-11-16] MEDS ORDERED: ACETAMINOPHEN 325 MG TABLET PO ONE (10:48)
--- NOTE | 2018-11-16 10:48 | ER Document Report ---
ED Medical Screen (RME) - General Chief Complaint: Vag Bleeding, +preg <12wks Stated Complaint: BLOOD SUGAR ISSUE/CRAMPING Time Seen by Provider: 11/16/18 10:26 Notes: 28-year-old, type I diabetic, 14/15 weeks . A positive blood type c onfirmed by my chart records on cell phone from previous hospital to the emergency department complaining of spotting, left lower quadrant pain. Also patient is a diabetic and has run out of her insulin. I have greeted and performed a rapid initial assessment of this patient. A comprehensive ED assessment and evaluation of the patient, analysis of test results and completion of the medical decision making process will be conducted by additional ED providers. TRAVEL OUTSIDE OF THE [place] IN LAST 30 DAYS: No - Related Data Allergies/Adverse Reactions: No Known Allergies Allergy (Verified 11/16/18 10:13) Past Medical History Pulmonary Medical History: Denies: Hx Tuberculosis Endocrine Medical History: Reports: Hx Diabetes Mellitus Type 1, Hx Hypothyroidism Renal/ Medical History: Reports: Hx Ovarian Cysts. Denies: Hx Peritoneal Dialysis Past Surgical History: Reports: Hx Oral Surgery - wisdom - Immunizations Immunizations up to date: Yes Hx Diphtheria, Pertussis, Tetanus Vaccination: Yes - 2008 Physical Exam - Vital signs Vitals: Temp Pulse Resp BP Pulse Ox 98.7 F 134 H 16 138/79 H 100 11/16/18 10:18 11/16/18 10:18 11/16/18 10:18 11/16/18 10:18 11/16/18 10:18 Interpretation: Tachycardic - Abdominal Tenderness: Tender - LLQ pain Course - Vital Signs Vital signs: Temp Pulse Resp BP Pulse Ox 98.7 F 134 H 16 138/79 H 100 11/16/18 10:18 11/16/18 10:18 11/16/18 10:18 11/16/18 10:18 11/16/18 10:18 Doctor's Discharge - Discharge Referrals: BENY ROSARIO MD [Primary Care Provider] - Follow up as needed
[2018-11-16 12:27] LABS: ABSOLUTE EOSINOPHILS # (AUTO) 0.2 10^3/uL (0.0-0.6); ABSOLUTE LYMPHOCYTES (AUTO) 2.4 10^3/uL (0.5-4.7); ABSOLUTE MONOCYTES (AUTO) 0.7 10^3/uL (0.1-1.4); ABSOLUTE NEUT (AUTO) 5.9 10^3/uL (1.7-8.2); BASOPHILS % (AUTO) 0.3 % (0-2); HEMATOCRIT 31.8 % (36.0-47.0); HEMOGLOBIN 10.3 g/dL (12.0-15.5); LYMPHOCYTES % (AUTO) 25.9 % (13-45); MEAN CORPUSCULAR HEMOGLOBIN 26.2 pg (27.0-33.4); MEAN CORPUSCULAR HGB CONC 32.5 g/dL (32.0-36.0); MEAN CORPUSCULAR VOLUME 81 fl (80-97); MONOCYTES % (AUTO) 7.7 % (3-13); PLATELET COUNT 246 10^3/uL (150-450); RED BLOOD COUNT 3.94 10^6/uL (3.72-5.28); RED CELL DISTRIBUTION WIDTH 17.6 % (11.5-14.0); SEGMENTED NEUTROPHILS % (AUTO) 64.1 % (42-78); TOTAL CELLS COUNTED % (AUTO) 100 %; WHITE BLOOD COUNT 9.3 10^3/uL (4.0-10.5)
[2018-11-16 12:30] LABS: APPEARANCE,URINE CLEAR; BILIRUBIN,URINE NEGATIVE (NEGATIVE); COLOR,URINE YELLOW; GLUCOSE, URINE >=500 mg/dL (NEGATIVE); KETONES,URINE TRACE mg/dL (NEGATIVE); LEUKOCYTE ESTERASE,URINE NEGATIVE (NEGATIVE); NITRITE,URINE NEGATIVE (NEGATIVE); PROTEIN,URINE NEGATIVE (NEGATIVE); URINE SPECIFIC GRAVITY 1.015; UROBILINOGEN,URINE NEGATIVE mg/dL (<2.0)
--- NOTE | 2018-11-16 13:59 | RADIOLOGY REPORT (SQ) ---
EXAM DESCRIPTION: U/S OB 14+ TA/1 GEST W/DOPPLER COMPLETED DATE/TIME: 11/16/2018 1:30 pm REASON FOR STUDY: vag bleding , LLQ pain COMPARISON: None. TECHNIQUE: Static and Dynamic grayscale imaging performed of gravid uterus using transabdominal appr oach. Additional selected color Doppler and spectral images recorded. All stored on PACS. LIMITATIONS: None. FINDINGS: FETUSES SEEN:1 EGA: 15 weeks 4 days Calculated using BPD,FL,HC,AC documented on images. No discrepancy with clinica l dates. RONALD: 05/06/2019 EFW: Not calculated PERCENTILE: Not calculated MARGUERITE: Adequate PLACENTA: Developing posteriorly, grade 1 PRESENTATION: Variable ANATOMY: HEART RATE: 149 beats per minute. FOUR CHAMBER HEART: Not well seen THREE VESSEL CORD: Yes. CORD INSERTION: Visualized. KIDNEYS AND BLADDER: Visualized. Appear normal. STOMACH: Visualized. Appears normal. SPINE: Normal as visualized. BRAIN AND LATERAL VENTRICLES: Visualized. Appear normal. OTHER: No other significant finding. MATERNAL ADNEXA: Maternal ovaries not visualized. CERVICAL LENGTH: 4 cm Closed. OTHER: No other significant finding. IMPRESSION: LIVING INTRAUTERINE . ESTIMATED GESTATIONAL AGE 15 weeks 4 days NO VISUALIZED ANOMALIES. Trimester of : Second trimester - 13 weeks 1 day to 27 weeks 6 days. TECHNICAL DOCUMENTATION: JOB ID: [id number] [employer]- All Rights Reserved Reading location - IP/workstation name: [email or web address]
[2018-11-16 14:07] LABS: ALANINE AMINOTRANSFERASE 21 U/L (9-52); ALBUMIN 4.1 g/dL (3.5-5.0); ALKALINE PHOSPHATASE 62 U/L (38-126); ANION GAP 8 (5-19); ASPARTATE AMINO TRANSFERASE 23 U/L (14-36); BILIRUBIN,DIRECT 0.1 mg/dL (0.0-0.4); BILIRUBIN,TOTAL 0.6 mg/dL (0.2-1.3); BLOOD UREA NITROGEN 10 mg/dL (7-20); CALCIUM 9.6 mg/dL (8.4-10.2); CARBON DIOXIDE 22 mmol/L (22-30); CHLORIDE 105 mmol/L (98-107); GLUCOSE 177 mg/dL (75-110); POTASSIUM 4.5 mmol/L (3.6-5.0); SODIUM 134.8 mmol/L (137-145)
[2018-11-16 14:08] LABS: TOTAL PROTEIN 7.1 g/dL (6.3-8.2)
--- NOTE | 2018-11-16 14:24 | ER Document Report ---
ED General - General Chief Complaint: Vag Bleeding, +preg <12wks Stated Complaint: BLOOD SUGAR ISSUE/CRAMPING Time Seen by Provider: 11/16/18 10:26 TRAVEL OUTSIDE OF THE [place] IN LAST 30 DAYS: No - HPI Notes: Patient is a 28-year-old female that presents to the emergency department for chief complaint of vaginal bleeding in . Patient is with history of one miscarriage. She is at roughly 15 weeks gestational age. Patient states she has had all of her OB care in [place] and moved back to [place] at the beginning of the month. She has not yet established with OB in the area. She has had trace pink vaginal discharge for the last 3 days. She reports a sharp pain in her left side since 7 weeks gestation. That pain is intermittent with no aggravating or relieving factors. Patient denies any nausea or vomiting, diarrhea, chest pain and shortness of breath. Past Medical History: Negative Past Surgical History: Negative Social History: Denies drugs alcohol and tobacco Family History: Reviewed and noncontributory for presenting illness Allergies: Reviewed, see documented allergy list. REVIEW OF SYSTEMS: CONSTITUTIONAL : No fever No chills No diaphoresis No recent illness EENT: No vision changes No congestion No sore throat CARDIOVASCULAR: No chest pain No palpitations RESPIRATORY: No shortness of breath No cough No difficulty breathing GASTROINTESTINAL: No abdominal pain No nausea No vomiting No diarrhea GENITOURINARY: Vaginal bleeding Pelvic pain No dysuria No hematuria No difficulty urinating MUSCULOSKELETAL: No back pain No leg pain No arm pain SKIN: No rashes No lesions LYMPHATIC: No swollen, enlarged glands. NEUROLOGICAL: No lightheadedness No headache No weakness No paresthesias PSYCHIATRIC: No anxiety No depression PHYSICAL EXAMINATION: Vital signs reviewed, nursing noted reviewed. GENERAL: Well-appearing, well-nourished and in no acute distress. HEAD: Atraumatic, normocephalic. EYES: Eyes appear normal, extraocular movements intact, sclera anicteric, conjunctiva are normal. ENT: nares patent, oropharynx clear without exudates. Moist mucous membranes. NECK: Normal range of motion, supple without lymphadenopathy LUNGS: Breath sounds clear to auscultation bilaterally and equal. No wheezes rales or rhonchi. HEART: Regular rate and rhythm without murmurs ABDOMEN: Nontender gravid uterus palpated just above the pubic symphysis, pressure abdomen soft, nontender. No rebound, guarding, or rigidity. No masses appreciated. EXTREMITIES: Nontender, good range of motion, no pitting or edema. NEUROLOGICAL: No focal neurological deficits. Moves all extremities spontaneously Motor and sensory grossly intact on exam. PSYCH: Normal mood, normal affect. SKIN: Warm, Dry, normal turgor, no rashes or lesions noted on exposed skin - Related Data Allergies/Adverse Reactions: No Known Allergies Allergy (Verified 11/16/18 10:13) Past Medical History - Social History Smoking Status: Never Smoker Frequency of alcohol use: None Drug Abuse: None Family History: Arthritis, CVA, DM, Thyroid Disfunction Patient has suicidal ideation: No Patient has homicidal ideation: No Pulmonary Medical History: Denies: Hx Tuberculosis Endocrine Medical History: Reports: Hx Diabetes Mellitus Type 1, Hx Hypothyroidism Renal/ Medical History: Reports: Hx Ovarian Cysts. Denies: Hx Peritoneal Dialysis Past Surgical History: Reports: Hx Oral Surgery - wisdom - Immunizations Immunizations up to date: Yes Hx Diphtheria, Pertussis, Tetanus Vaccination: Yes - 2008 Hx Pneumococcal Vaccination: 03/02/12 Physical Exam - Vital signs Vitals: Temp Pulse Resp BP Pulse Ox 98.7 F 134 H 16 138/79 H 100 11/16/18 10:18 11/16/18 10:18 11/16/18 10:18 11/16/18 10:18 11/16/18 10:18 Course - Re-evaluation Re-evalutation: 11/16/18 14:20 Vitals reviewed. Nursing notes reviewed. Patient medication and needs refills on her insulin. Her glucose is 177 today. Patient will get a refill of Humalog and Levemir. She states she has not missed any doses but only has a few days left. She was tachycardic at presentation with no palpitations or chest discomfort. Patient's lab work shows a mild anemia which she has had in the past. her vaginal bleeding is minimal. Pelvic ultrasound shows single live intrauterine gestation with no abnormalities. Patient has Rh+ blood work confirmed on my chart from a outside hospital therefore RhoGam is not indicated. She will be referred to OB for close follow-up. She is stable at discharge. Laboratory 11/16/18 11/16/18 11/16/18 11:24 11:24 11:24 WBC 9.3 RBC 3.94 Hgb 10.3 L Hct 31.8 L MCV 81 MCH 26.2 L MCHC 32.5 RDW 17.6 H Plt Count 246 Seg Neutrophils % 64.1 Lymphocytes % 25.9 Monocytes % 7.7 Eosinophils % 2.0 Basophils % 0.3 Absolute Neutrophils 5.9 Absolute Lymphocytes 2.4 Absolute Monocytes 0.7 Absolute Eosinophils 0.2 Absolute Basophils 0.0 Sodium Cancelled Potassium Cancelled Chloride Cancelled Carbon Dioxide Cancelled Anion Gap Cancelled BUN Cancelled Creatinine Cancelled Est GFR ( Amer) Cancelled Est GFR (Non-Af Amer) Cancelled Glucose Cancelled Calcium Cancelled Total Bilirubin Cancelled Direct Bilirubin Cancelled Neonat Total Bilirubin Cancelled Neonat Direct Bilirubin Cancelled Neonat Indirect Bili Cancelled AST Cancelled ALT Cancelled Alkaline Phosphatase Cancelled Total Protein Cancelled Albumin Cancelled TSH Cancelled Urine Color Urine Appearance Urine pH Ur Specific C[place] Urine Protein Urine Glucose (UA) Urine Ketones Urine Blood Urine Nitrite Urine Bilirubin Urine Urobilinogen Ur Leukocyte Esterase Urine WBC (Auto) Urine RBC (Auto) Squamous Epi Cells Auto Urine Mucus (Auto) Urine Ascorbic Acid 11/16/18 11/16/18 11:24 13:34 WBC RBC Hgb Hct MCV MCH MCHC RDW Plt Count Seg Neutrophils % Lymphocytes % Monocytes % Eosinophils % Basophils % Absolute Neutrophils Absolute Lymphocytes Absolute Monocytes Absolute Eosinophils Absolute Basophils Sodium 134.8 L Potassium 4.5 Chloride 105 Carbon Dioxide 22 Anion Gap 8 BUN 10 Creatinine 0.34 L Est GFR ( Amer) > 60 Est GFR (Non-Af Amer) > 60 Glucose 177 H Calcium 9.6 Total Bilirubin 0.6 Direct Bilirubin 0.1 Neonat Total Bilirubin Not Reportable Neonat Direct Bilirubin Not Reportable Neonat Indirect Bili Not Reportable AST 23 ALT 21 Alkaline Phosphatase 62 Total Protein 7.1 Albumin 4.1 TSH Urine Color YELLOW Urine Appearance CLEAR Urine pH 5.0 Ur Specific [place] 1.015 Urine Protein NEGATIVE Urine Glucose (UA) >=500 H Urine Ketones TRACE H Urine Blood NEGATIVE Urine Nitrite NEGATIVE Urine Bilirubin NEGATIVE Urine Urobilinogen NEGATIVE Ur Leukocyte Esterase NEGATIVE Urine WBC (Auto) 0 Urine RBC (Auto) 0 Squamous Epi Cells Auto 2 Urine Mucus (Auto) RARE Urine Ascorbic Acid NEGATIVE Obstetrics Ultrasound 11/16/18 10:47 IMPRESSION: LIVING INTRAUTERINE . ESTIMATED GESTATIONAL AGE 15 weeks 4 days NO VISUALIZED ANOMALIES. Trimester of : Second trimester - 13 weeks 1 day to 27 weeks 6 days. - Vital Signs Vital signs: Temp Pulse Resp BP Pulse Ox 98.7 F 134 H 16 138/79 H 100 11/16/18 10:18 11/16/18 10:18 11/16/18 10:18 11/16/18 10:18 11/16/18 10:18 - Laboratory Result Diagrams: 11/16/18 11:24 11/16/18 13:34 Laboratory results interpreted by me: 11/16/18 11/16/18 11/16/18 11:24 11:24 13:34 Hgb 10.3 L Hct 31.8 L MCH 26.2 L RDW 17.6 H Sodium 134.8 L Creatinine 0.34 L Glucose 177 H Urine Glucose (UA) >=500 H Urine Ketones TRACE H Discharge - Discharge Clinical Impression: Hyperglycemia, Threatened miscarriage Condition: Stable Disposition: HOME, SELF-CARE Instructions: Threatened Miscarriage ([facility]) Additional Instructions: Please return to the emergency department if you have any worsening, or concern of your symptoms. Please return to the emergency department if you develop chest pain, difficulty breathing, severe abdominal pain, or ongoing vomiting. Please follow-up with your primary care physician in 2-3 days and any other recommended physicians. If prescribed, take all medications as directed. If you have any questions or concerns do not hesitate to return the emergency department for evaluation. [] Prescriptions: Insulin Detemir [Levemir] 30 unit SQ DAILY #1 vial Insulin Lispro [Humalog] 100 unit SQ ASDIR PRN #1 cartridge PRN Reason: Referrals: BENY ROSARIO MD [COMMUNITY BASED STAFF] - Follow up as needed [facility] [Provider Group] - Follow up in 3-5 days [facility] [Provider Group] - Follow up in 3-5 days
[2018-11-16 14:31] VITALS: BP 125/62
== END 2018-11-16 14:33 | disposition home or self-care (01) ==
LOC: ER 10:12
DX: O20.0 Threatened abortion (principal); O24.019 Pre-existing type 1 diabetes mellitus, in pregnancy, unspecified trimester; E10.65 Type 1 diabetes mellitus with hyperglycemia; O26.899 Other specified pregnancy related conditions, unspecified trimester; R10.2 Pelvic and perineal pain; O99.019 Anemia complicating pregnancy, unspecified trimester; D64.9 Anemia, unspecified; Z3A.00 Weeks of gestation of pregnancy not specified; Z87.42 Personal history of other diseases of the female genital tract
CPT/HCPCS: 36415; 76805; 80053; 81001; 84443; 85025; 93976; 99284

== ENCOUNTER → 2018-11-24 | Outpatient (CLI) | payer MEDICAID, OTHER ==
[2018-11-24 09:27] LABS: ABSOLUTE EOSINOPHILS # (AUTO) 0.2 10^3/uL (0.0-0.6); ABSOLUTE LYMPHOCYTES (AUTO) 1.7 10^3/uL (0.5-4.7); ABSOLUTE MONOCYTES (AUTO) 0.6 10^3/uL (0.1-1.4); ABSOLUTE NEUT (AUTO) 5.2 10^3/uL (1.7-8.2); BASOPHILS % (AUTO) 0.4 % (0-2); HEMATOCRIT 30.4 % (36.0-47.0); HEMOGLOBIN 9.9 g/dL (12.0-15.5); LYMPHOCYTES % (AUTO) 21.9 % (13-45); MEAN CORPUSCULAR HEMOGLOBIN 26.1 pg (27.0-33.4); MEAN CORPUSCULAR HGB CONC 32.7 g/dL (32.0-36.0); MEAN CORPUSCULAR VOLUME 80 fl (80-97); MONOCYTES % (AUTO) 7.4 % (3-13); PLATELET COUNT 259 10^3/uL (150-450); RED CELL DISTRIBUTION WIDTH 17.2 % (11.5-14.0); SEGMENTED NEUTROPHILS % (AUTO) 67.3 % (42-78); TOTAL CELLS COUNTED % (AUTO) 100 %; WHITE BLOOD COUNT 7.7 10^3/uL (4.0-10.5)
[2018-11-24 09:45] LABS: ALANINE AMINOTRANSFERASE 9 U/L (9-52); ANION GAP 8 (5-19); ASPARTATE AMINO TRANSFERASE 18 U/L (14-36); BLOOD UREA NITROGEN 7 mg/dL (7-20); CALCIUM 9.3 mg/dL (8.4-10.2); CARBON DIOXIDE 23 mmol/L (22-30); CHLORIDE 106 mmol/L (98-107); GLUCOSE 125 mg/dL (75-110); POTASSIUM 4.4 mmol/L (3.6-5.0); SODIUM 136.6 mmol/L (137-145)
[2018-11-25 12:38] LABS: CREATININE URINE 145.2 mg/dL (Not Estab.); MICROALBUMIN URINE 3.3 ug/mL (Not Estab.)
== END ==
LOC: OD 08:36
PROVIDERS: ATTEND Family Medicine Geriatric Medicine
DX: E10.9 Type 1 diabetes mellitus without complications (principal); E53.8 Deficiency of other specified B group vitamins; J30.2 Other seasonal allergic rhinitis; Z79.899 Other long term (current) drug therapy
CPT/HCPCS: 36415; 80048; 82043; 82570; 83036; 84450; 84460; 85025

== ENCOUNTER → 2019-01-16 | Outpatient (CLI) | payer MEDICAID | LOC: OD 13:58 | PROVIDERS: ATTEND Family Medicine Geriatric Medicine | DX: O99.212 Obesity complicating pregnancy, second trimester (principal); E66.3 Overweight; Z3A.23 23 weeks gestation of pregnancy | CPT/HCPCS: 36415; 84443 ==

== ENCOUNTER → 2020-02-08 | Outpatient (CLI) | payer BC, MEDICAID ==
[2020-02-08 17:41] LABS: ABSOLUTE BASOPHILS # (AUTO) 0.1 10^3/uL (0.0-0.2); ABSOLUTE EOSINOPHILS # (AUTO) 0.2 10^3/uL (0.0-0.6); ABSOLUTE LYMPHOCYTES (AUTO) 3.3 10^3/uL (0.5-4.7); ABSOLUTE MONOCYTES (AUTO) 0.6 10^3/uL (0.1-1.4); ABSOLUTE NEUT (AUTO) 3.2 10^3/uL (1.7-8.2); BASOPHILS % (AUTO) 0.9 % (0-2); EOSINOPHILS % (AUTO) 2.8 % (0-6); HEMATOCRIT 36.7 % (36.0-47.0); HEMOGLOBIN 12.2 g/dL (12.0-15.5); LYMPHOCYTES % (AUTO) 44.8 % (13-45); MEAN CORPUSCULAR HEMOGLOBIN 26.8 pg (27.0-33.4); MEAN CORPUSCULAR HGB CONC 33.2 g/dL (32.0-36.0); MEAN CORPUSCULAR VOLUME 81 fl (80-97); MONOCYTES % (AUTO) 8.2 % (3-13); RED BLOOD COUNT 4.54 10^6/uL (3.72-5.28); SEGMENTED NEUTROPHILS % (AUTO) 43.3 % (42-78); TOTAL CELLS COUNTED % (AUTO) 100 %; WHITE BLOOD COUNT 7.3 10^3/uL (4.0-10.5)
[2020-02-08 18:01] LABS: ALBUMIN 5.1 g/dL (3.5-5.0); ALKALINE PHOSPHATASE 103 U/L (38-126); ANION GAP 10 (5-19); ASPARTATE AMINO TRANSFERASE 25 U/L (14-36); BILIRUBIN,TOTAL 1.7 mg/dL (0.2-1.3); BLOOD UREA NITROGEN 7 mg/dL (7-20); CALCIUM 9.4 mg/dL (8.4-10.2); CARBON DIOXIDE 22 mmol/L (22-30); CHLORIDE 104 mmol/L (98-107); GLUCOSE 95 mg/dL (75-110); POTASSIUM 4.7 mmol/L (3.6-5.0); TOTAL PROTEIN 8.3 g/dL (6.3-8.2)
[2020-02-08 18:03] LABS: PLATELET COUNT 212 10^3/uL (150-450)
[2020-02-10 06:36] LABS: CREATININE URINE 136.2 mg/dL (Not Estab.)
== END ==
LOC: OD 16:55
PROVIDERS: ATTEND Family Medicine Geriatric Medicine
DX: E10.9 Type 1 diabetes mellitus without complications (principal); J30.2 Other seasonal allergic rhinitis; D50.9 Iron deficiency anemia, unspecified; Z79.899 Other long term (current) drug therapy
CPT/HCPCS: 36415; 80053; 82043; 82570; 83036; 85025